=== PATIENT | female | born 1970 | race Caucasian/White ===

== ENCOUNTER → 2024-06-26 | Outpatient (CLI) | payer BC, SELFPAY ==
--- NOTE | 2024-06-26 08:45 | RAD_ITS ---
PROCEDURE: L/S SPINE MIN 4 VIEWS 06/26/2024 REASON FOR EXAM: ASSESS VERTBRAL ALIGNMENT OF DISC SPACE Worsening lower back and right hip pain. TECHNIQUE: AP lateral and oblique views of the lumbar spine were obtained. COMPARISON: None FINDINGS: Curvature: No evidence of scoliosis. Other findings: Disc spaces are well-maintained. Other: RAD/L/S Spine Min 4 Views IMPRESSION: Unremarkable examination of the lumbar sacral spine. Reading Location: [facility]
== END | disposition home or self-care (01) ==
PROVIDERS: PCP Nurse Practitioner Family; Referring Provider Nurse Practitioner Family; Visit Provider Nurse Practitioner Family
DX: M54.50 Low back pain, unspecified (principal)
CPT/HCPCS: 72110